=== PATIENT | female | born 1955 ===

== ENCOUNTER 2021-05-30 06:10 | Day surgery (SDC) | payer OTHER ==
[~2021-05-30 06:10] MED LIST: CALTRAT PO; CENTRU PO; COZAAR50 MG PO; LIPITOR40 M1 PO; NEXIUM40 M1 PO; NORVASC5 MG PO; SUPER B-50 COM1 EACH PO; VITAMIN D PO
[2021-05-30] MEDS ORDERED: CIPRO500 MG PO (09:27)
[2021-05-30] MEDS ORDERED: IBU800 MG PO (09:28)
== END 2021-05-30 13:30 | disposition home or self-care (01) ==
LOC: CIR.AMB 06:10
PROVIDERS: ATTEND Obstetrics & Gynecology Gynecology
DX: N81.11 Cystocele, midline (principal); Z20.822 Contact with and (suspected) exposure to COVID-19